=== PATIENT | male | born 1945 | race Caucasian/White ===

== ENCOUNTER → 2024-12-22 17:31 | Outpatient (REF) | payer MEDICARE, OTHER, SELFPAY | LOC: RAD 17:31 | PROVIDERS: ATTENDING PHYSICIAN Family Medicine | DX: R06.09 Other forms of dyspnea (principal); R94.31 Abnormal electrocardiogram [ECG] [EKG] | CPT/HCPCS: 71046 ==

== ENCOUNTER → 2025-03-28 08:59 | Outpatient (REF) | payer MEDICARE, OTHER, SELFPAY | LOC: RCS 08:59 | PROVIDERS: ATTENDING PHYSICIAN Family Medicine | DX: R06.09 Other forms of dyspnea (principal); R94.31 Abnormal electrocardiogram [ECG] [EKG] | CPT/HCPCS: 93017; 93350 ==

== ENCOUNTER 2025-07-18 17:33 | Inpatient (IN) | payer MEDICARE, OTHER, SELFPAY ==
[2025-07-18] VITALS (60 sets, daily range): BP systolic 132–188; BP diastolic 83–108; BMI 34.8
[2025-07-18 16:11] LABS: Glucose - Point of Care 94 mg/dl (70-99)
[2025-07-18 16:21] LABS: Hematocrit 49.2 % (39.0-52.0); Hemoglobin 16.8 g/dL (13.0-18.0); Mean Corp Hgb Conc. 34.1 g/dL (33.0-37.0); Mean Corpuscular Volume 94.1 fL (80.0-94.0); Nucleated Red Blood Cells % 0 % (-); Platelet Count 194 10^3/uL (130-400); Red Cell Dist. Width 12.4 % (11.5-14.5)
[2025-07-18 16:28] LABS: INR 0.93; PT 12.9 Sec (11.4-14.6)
[2025-07-18 16:29] LABS: APTT 24.1 Sec (23.4-35.0)
[2025-07-18 16:43] LABS: Troponin I < 0.012 ng/ml
[2025-07-18] MEDS: TNKASE 5 MG IV (17:09)
--- NOTE | 2025-07-18 17:17 | ED.CVA ---
History of Present Illness
General
Chief Complaint: CVA/TIA Symptoms
Time Seen by Provider: 07/18/25 16:08
Onset of Stroke Symptoms
Onset of symptoms known: Yes
Date of onset of symptoms: 07/18/25
Time of onset of symptoms: 14:45
Time pt last seen normal is known: Yes
Date last time pt seen normal: 07/18/25
Time last time pt seen normal: 14:45
History of Present Illness
History of Present Illness:
80-year-old male presenting with slurred speech, left-sided facial droop, left-sided numbness and weakness starting around 245pm while walking around at [email or web address]. Patient denies headache, chest pain or shortness of breath. Patient is not on
blood thinners. states that patient is otherwise healthy, only takes Lexapro for history of depression
Past History
Past History
ED Past Medical History: Other (Previous kidney stone, status post right knee meniscectomy, status post L5 herniated disc with epidural steroids)
Social History
Tobacco: Non-smoker
Alcohol: None
Family History
Family History: Negative Diabetes, Hypertension or CAD
Phy Exam
Physical Exam
Physical Exam:
General: Alert, no acute distress
Head: NCAT
Eyes: clear conjunctiva, PERRLA, EOMI
Neck: supple
Cardiac: regular rate and rhythm, no murmur
Lungs: clear to auscultation bilaterally. No wheezes, rales, or rhonchi. No respiratory distress.
Abdomen: soft, nondistended nontender. No rebound or guarding.
MSK: no lower extremity edema bilaterally. No deformity
Skin: warm, dry
Neuro: Alert and oriented x3. Slurred speech. Left-sided facial droop. Numbness to left arm compared to right, no numbness to legs. Left leg pronator drift, and no arm pronator drift. NIHSS 4.
Course
Orders/Labs/Results
Orders:
Orders
07/18/25 16:06
CT HEAD STROKE ALERT W/o Cont Urgent
Reason For Exam: lateral weakness
07/18/25 16:11
Electrocardiogram (*1) Urgent
Reason for Study: Other
Other Reason for Exam: Possible Stroke
Bedside Glucose- Treatment ONCE
07/18/25 16:12
EKG- Treatment ONCE
07/18/25 16:13
Complete Blood Count/With Diff Urgent
PTT Urgent
Prothrombin Time Urgent
Troponin I Urgent
07/18/25 16:18
CT HEAD/NECK ANG STROKE ALERT Urgent
Comment:
Reason For Exam: stroke alert
07/18/25 16:28
CT BRAIN PERF STROKE ALERT Urgent
Comment:
Reason For Exam: stroke alert
07/18/25 16:56
Comprehensive Metabolic Panel Urgent
Magnesium Urgent
Comment: ADD ON
Phosphorus Urgent
Comment: ADD ON
07/18/25 17:01
Tenecteplase [Tnkase] 25 mg Syringe [Syringe Non-Pump] 0 ml IV NOW
Provider explained risk/benefits to patient &/or caregiver?: Yes
Blood pressure: 147/94
07/18/25 17:29
Admit/Transfer Patient As Directed
Co-Sign Provider:
Level of Care: Inpatient admission
Assign to:: ICU
Physician / Group: Dariel
Diagnosis: Stroke
Reason for Hospitalization: TNK
Expected length of stay greater than two midnights?: Yes
ELOS- Estimated Length of Stay in days: 3
I certify the patient meets the requirements for IP care: Yes
07/18/25 17:30
PRN Pain Medication Management As Directed
May give lesser potent ordered pain med per pt: Yes
preference::
Protocol:: Medication orders for pain may be administered in a
manner that supports deferring to patient preference
when the pt is:
- Requesting an ordered lesser potent pain medication.
Least to most potent pain medications are defined
as: acetaminophen < NSAID < tramadol < opioids
(morphine, oxycodone, hydromorphone).
- Requesting a lesser dose of the same medication IF
ORDERED.
- Requesting a less intrusive route of administration
if both routes are prescribed by the provider (PO <
IV).
07/18/25 17:31
Code Status As Directed
Resuscitation Status: Full Code
07/18/25 17:34
Add On- LAB Stat
Comments:: PLEASE ADD
Tests Added?: MAG,PHOS
07/18/25 17:55
Acetaminophen [Tylenol] 650 mg PO Q4HPRN PRN
HydrALAZINE [Apresoline] 5 mg IV Q6HPRN PRN
07/18/25 17:55
Electrocardiogram (*1) Routine
Reason for Study: TIA/Stroke
Case Management Consult Once
Case Management Consult: Discharge Planning
DIETARY IP CONSULT Routine
Reason for Consult: stroke/TIA
And Taxi Instructor Bus Trolley Consult Routine
Consulting Provider: Oliver Flanagan
Was physician already notified: Yes
NEUROLOGY CONSULT Urgent
Consulting Provider: Vicente Carlos
Was physician already notified: Yes
Flanging Operator Urgent
MR Brain Without Contrast Routine
Comment: complete 24 hrs post tenecteplase administration
Reason For Exam: possible stroke, status post tenecteplase
Recent pill cam endoscopy?: No
Activity As Directed
Activity Level: Bathroom Privileges
Out of Bed- Chair
With Assistance
Comment: x 24hr post tenecteplase admin (and no PT/OT). then OOB as tolerated
Head of Bed-Restrictions As Directed
Elevation Level: 30 degress
Frequency: At all times
Comment: head of bed up 30 degrees for 24 hours
Hemetest Stools As Directed
Comment: hemoccult all stools if patient received tenecteplase
NIH Stroke Scale As Directed
Directions: Other
Comment: NIH stroke Scale to be completed prior to thrombolytic administration, then every 1 hour for 2
hours, then every shift and with change in condition and/or mental status.
Neurological Checks As Directed
Frequency: Per unit guidelines
Additional Instructions:: after start of thrombolytic therapy:
q15min x 2 hrs, q30min x 6 hrs, q1h x 16 hrs, q4h x 24 hrs, then every shift and
with any changes.
Notify MD As Directed
Notify physician if: - Any deterioration, change in neurological status, development of severe headache,
nausea and vomiting, or with any signs of bleeding. (see guidelines for suspected
intracerebral hemorrhage).
- If intracranial hemorrhage is suspected or confirmed by imaging, anticipate need for
osmotic diuretic to maintain euvolemia.
Notify MD As Directed
Notify physician if: Glucose less than 70 or greater than 180.
Anticipate corrective insulin orders.
Notify MD As Directed
Notify physician if: SBP not at goal within 30 minutes of prn HYDRALAZINE administration.
notify provider to initiate continuous infusion of nicardipine or clevidipine.
Notify MD As Directed
Notify physician if: unable to obtain MRI of head within 22-32 hours of tenecteplase administration
- contact Neurology for order for CT of head without contrast
Patient Education As Directed
Type: Stroke education packet
Comment: provide to patient and family
Pneumatic Compression Sleeves As Directed
Type: Knee high
Precautions As Directed
Type of Precautions: Bleeding
Comment: post Bleeding Precaution sign at bedside (if patient received tenecteplase)
Swallow Screening CVA/TIA ONLY As Directed
Comment: NPO until swallow screening completed
If patient FAILS swallow screening:: NPO and Speech consult and aspiration precautions
If patient PASSES swallow screening, diet:: Cholesterol Lowering
Thrombolytic Precautions As Directed
Thrombolytic Precautions:: [place] bleeding precautions. Minimize invasive procedures and venipunctures,
avoid IM injections and over-handling patient, and check all puncture sites for
bleeding. Assess the patient and notify provider for signs and symptoms of
internal or serious bleeding, such as changes in vital signs or evidence of blood
in the urine or stool.
Additional instructions: Hemocult all stools.
Apply direct pressure or pressure dressing to any compressible puncture sites.
No ABG sampling or Hlae insertion after Tenecteplase administration for 24 hours,
unless directed by the Neurologist/Attending.
Vital Signs As Directed
Frequency: q15m
Call for:: BP greater than 180/105 mmHg or less than 100/60 mmHg
Additional Instructions:: after start of thrombolytic therapy:
q15min x 2 hrs, q30min x 6 hrs, q1h x 16 hrs, q4h x 24 hrs, then every shift and
with any changes.
Ot Eval And Treat Routine
Pt Eval And Treat Routine
Activity Level: Out of Bed-Early Mobility
Speech Therapy Eval & Treat Routine
DX Deep Vein Thrombosis Video Routine
07/18/25 22:00
Escitalopram Oxalate [Lexapro] 10 mg PO HS
07/19/25 06:00
Basic Metabolic Panel IN AM
Cardiovascular Evaluation IN AM
Complete Blood Count/No Diff IN AM
Glycohemoglobin (HgbA1c) IN AM
Magnesium IN AM
PTT IN AM
Prothrombin Time IN AM
Abnormal Lab Results
07/18/25 07/18/25
16:13 16:56
MCV 94.1 H fL
(80.0-94.0)
MCH 32.1 H pg
(27.0-31.0)
Absolute Monos (auto) 0.8 H 10^3/uL
(0.1-0.6)
Monocytes % 10.6 H %
(1.7-9.3)
Sodium 134 L mmol/L
(135-145)
07/18/25 16:13
07/18/25 16:56
Vital Signs
Initial and Last Documented VS:
Initial Vital Signs
Temp Pulse Resp BP Pulse Ox
98.0 F 66 18 168/96 99
07/18/25 16:02 07/18/25 16:02 07/18/25 16:02 07/18/25 16:02 07/18/25 16:02
Last Documented Vital Signs
Temp Pulse Resp BP Pulse Ox
97.7 F 57 20 157/100 97
07/18/25 18:07 07/18/25 19:30 07/18/25 19:30 07/18/25 19:30 07/18/25 19:30
MDM/Problems Addressed
MDM/Problems Addressed:
80-year-old male presenting with stroke symptoms consistent with left-sided facial droop, left-sided numbness/weakness and slurred speech starting at 245 this afternoon. Patient is on no blood thinners. Patient seen immediately on arrival due to
concern for acute stroke. Discussed with Dr. Perez, [place] [facility] neurology fellow, who reviewed imaging. Given patient is unable to walk due to the left leg weakness, recommended to administer TNK. Discussed risk versus benefits with patient
and at bedside including intracranial hemorrhage. Patient and expressed verbal understanding and are agreeable. Administered TNK. Critical Care alert activated. Pt accepted to ICU
Labs reveiwed, unremarkable.
*Pulse Oximetry
SaO2: 97
Oxygen Mode of Delivery: Room air
Patient hypoxic: no
*EKG
Interpreted by ED Provider?: Yes (EKG shows sinus bradycardia at 58 bpm with VA 240 QTc 422 T wave inversions in leads I and aVL, V4 through V6 similar to previous EKG on 04/12/2019)
*Critical Care Note
Total Time (30-74mins, 75-104mins- exclusive of procedures): Critical care time 46 min
ED Attending Note
-
Portions of this chart may have been created with voice recognition software.� Occasional wrong word or��sound alike� substitutions may have occurred due to the inherent limitations of voice recognition software.
Discharge Plan
Departure
Patient Disposition: Admit
Date of Disposition: 07/18/25
Time of Disposition: 17:16
Presentation/result/management discussed w/ accepting MD/DO: Hospitalist
Discharge Problem:
Stroke
Interventions
Interventions:
*Risk Screen - Suicide Last Done: 07/18/25 16:09
*General Assessment Last Done: 07/18/25 16:09
*Neglect/Abuse Screening Last Done: 07/18/25 16:09
*ED COVID-19 Vaccine History Last Done: 07/18/25 16:09
*Nursing Disposition Last Done: 07/18/25 17:50
ED- Pulmonary Assessment Last Done: 07/18/25 16:30
ED- Neurological Assessment Last Done: 07/18/25 16:54
ED- Cardiac Assessment Last Done: 07/18/25 16:30
Discharge Date and Time
Discharge Date/Time: 07/18/25 17:50
[2025-07-18 17:18] LABS: ALT (SGPT) 43 U/L (0-50); AST (SGOT) 34 U/L (17-59); Albumin 3.8 g/dl (3.5-5.0); Alkaline Phosphatase 46 U/L (38-126); Blood Urea Nitrogen 17 mg/dl (9-20); Calcium 8.9 mg/dl (8.4-10.2); Carbon Dioxide 26 mmol/L (22-30); Chloride 104 mmol/L (98-107); Glucose 94 mg/dl (70-99); Potassium 4.7 mmol/L (3.5-5.1); Sodium 134 mmol/L (135-145); Total Protein 6.4 g/dl (6.3-8.2); eGFR > 60.00
--- NOTE | 2025-07-18 17:27 | HPS.HSE ---
Addendum entered and electronically signed by Ricci Vieira MD 07/18/25 19:58:
This is an addendum to H&P written by Gaby Roach on 07/18/2025. �Patient seen and examined independently with PA.
80-year-old male past medical history of depression, thyroid mass status right hemithyroidectomy presenting with feeling unwell, slurred speech, left-sided tingling progressing to worsening left-sided upper and lower weakness and left facial droop
symptoms starting at 2:45 PM.�
Vital signs show blood pressure of 188/101. �NIH of 6.
Labs unremarkable.
CT head shows no acute intracranial abnormality. �CTA head and neck shows no significant stenosis.
Concern for acute CVA. �Stroke alert was called and neurology recommended TNK. �Maintain blood pressure below 180/100. �As needed hydralazine. �Check A1c and lipid panel. �Check echo. �MRI brain. �PT OT. �Speech evaluation. �Neurology consulted.
Patient had improvement in symptoms after TNK but later some worsening of tingling on the left. Repeat CT head negative.�
Original Note:
Family Physician
-
Family Physician:
Chief Complaint
-
Left Sided Weakness
History of Present Illness
Patient is a 80 y/o male past medical history of depression who presents with left sided weakness. Onset of symptoms was about one hour prior to arrival. Patient reports he initially just began not feeling well while shopping. He then developed
difficulty with his speech, and worsening numbness with weakness of his left side. His brought him directly to the emergency department for evaluation. Prior to my evaluation patient was given Tenecteplase prior to my evaluation and symptoms
are now improving. He denies any prior history of stroke. He denies hypertension, hyperlipidemia or diabetes mellitus.
Medical History
Past Medical History
Past Medical History: Reports Other
Additional Past Medical History:
Depression
Thyroid Mass
Past Surgical History: Reports Other
Additional Past Surgical History:
Right Hemithyroidectomy
Right Knee Meniscectomy
Lithotripsy
Social History
Tobacco: Non-smoker
Alcohol: None
Family History
Family History: Not pertinent
Allergies / Home Medications
Allergies reflects when Allergies were last updated in [employer].
Home Medications with original date entered in [employer]
Allergy/Medication List:
Allergies
Allergy/AdvReac Type Severity Reaction Status Date / Time
No Known Allergies Allergy Verified 07/18/25 16:07
Home Medications
escitalopram oxalate 10 mg tablet (Lexapro) 10 mg PO HS 07/18/25
Review of Systems
-
Unable to obtain full review of systems at this time due to: Acuity
A 12 point ROS was completed and negative except as noted: Yes
Constitutional: Denies Fever
Respiratory: Denies Cough or Trouble Breathing
Cardiac: Denies Chest Pain or Palpitations
Physical Exam
Vital Signs
Vital Signs
Temp Pulse Resp BP Pulse Ox
98.0 F 57 17 160/95 97
07/18/25 16:02 07/18/25 17:09 07/18/25 17:09 07/18/25 17:09 07/18/25 17:22
Physical Exam
General: Well Developed and Well Nourished
HEENT: Anicteric and Moist mucous membranes
Respiratory: Clear and Non Labored Respirations
Cardiac: S1/S2 and Regular Rhythm
GI: Soft
Rectal: Deferred by Provider
Musculoskeletal: No Clubbing, No Cyanosis and No Edema
Skin: Warm and Dry
Neuro: Awake, Alert, No Motor Deficits (All prior motor deficits have resolved), Slurred Speech (Minimal and continuing to improve during my evaluation) and Facial Droop (Slightly on left)
Psych: Calm
Laboratory Results
-
07/18/25 16:13
07/18/25 16:56
Laboratory Results
PT 12.9 Sec (11.4-14.6) 07/18/25 16:13
INR 0.93 07/18/25 16:13
APTT 24.1 Sec (23.4-35.0) 07/18/25 16:13
Total Bilirubin 0.7 mg/dl (0.2-1.3) 07/18/25 16:56
AST 34 U/L (17-59) 07/18/25 16:56
ALT 43 U/L (0-50) 07/18/25 16:56
Alkaline Phosphatase 46 U/L (38-126) 07/18/25 16:56
Troponin I < 0.012 ng/ml 07/18/25 16:[address]:
No acute intracranial abnormality.
Head/Neck CTA:
CT Brain: No acute intracranial process. Specifically, no evidence of acute hemorrhage.
CTA Head: No significant arterial stenosis or large vessel occlusion. No aneurysm. Mild atherosclerotic calcifications of the bilateral carotid siphons without significant stenosis.
CTA Neck: No significant arterial stenosis.
Data Reviewed
-
Lab Data: Labs Reviewed by me
Impression/Plan
-
Acute Stroke
-Patient given TNK in ED - Admit to ICU
-Consult Pre School Manager
-Consult Neurology
-No antiplatelets for 24 hours
-Check Brain MRI tomorrow
-PT/OT / Speech Consult
-Check HgbA1c and Lipid Panel
Depression
-Continue Lexapro
DVT proph: SCDs
Code Status: Full Code
[2025-07-18 18:16] LABS: Magnesium 2.0 mg/dl (1.6-2.3)
--- NOTE | 2025-07-18 18:25 | PTCARENOTE ---
Rec'd pt 1755 via stretcher from ED s/p TNK at 1709. Rec'd pt awake alert and oriented. Denies dizziness or headache. NIH is a 6. Pt with sl L facial droop. Slight L arm and L leg ataxia as well as a slight drift on both the L arm and L leg. Some
slurring of his speech but easily understandable. Admits to heaviness/weakness of his L arm and L leg but is able to fully move them and some pins and needles in his L hand. 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 States sensation is
equal bilaterally. CARLOS at 2mm. Skin is pink wm and dry. Respirs are unlabored on RA with sats of 96%. BS are clear. Monitor SBrady. + pulses. No edema. Denies chest pain. ABd is soft with + BS. Denies nausea. Voiding yellow urine in the urinal.
Capped ints intact L ac and R ac. Complete CHG bath given. Pts in and updated. Call fleming in reach. Plan of care reviewed with pt and his .
--- NOTE | 2025-07-18 18:50 | PTCARENOTE ---
At the 183 Neuro check noticed pt was struggling to move his L arm- when asked if he was feeling ok said he was having a harder time moving his arm and that he couldn't feel his L foot as well. Denied dizziness or headache. CARLOS at 2 mm. Still
with sl L facial droop. R arm and R leg with no issues. L arm he is able to move but definitely weaker than the last neuro check- is able to lift it off the bed but not able to raise it as high as earlier and grasp is weaker than earlier. L leg not
able to lift as high off the bed and admits he has to concentrate to lift it. Able to move toes on the L but not as much. Denies difference in sensation. Still admits to pins and needles in hand. Ataxia is worsened on both the L arm and L leg.
Panchito updated and CT scan ordered
--- NOTE | 2025-07-18 18:50 | PTCARENOTE ---
Additional assessment. NIH completed at 9913 and [facility] is an 8
--- NOTE | 2025-07-18 18:55 | PTCARENOTE ---
Dr. Flanagan updated on neuro changes and pt taken for CT of the head.
--- NOTE | 2025-07-18 19:10 | PTCARENOTE ---
Returned from CT- no changes NIH remains at an 8. Able to move L arm and L leg but admits they both feel heavier and movement still less than when he first came up from the ED. Still says sensation is the same. Able to move the toes on his L foot
but only slightly. Speech still with slurring but no worse than last check. NIH completed with oncoming shift. Pts family at the bedside.
--- NOTE | 2025-07-18 20:00 | PTCARENOTE ---
NIHSS 8, performed with dayshift RN at bedside. Pt has left sided weakness w/ left facial droop. Speech is slurred but understandable.
--- NOTE | 2025-07-18 20:33 | W.PN.UPDATE ---
Update Note
Progress Note Update
07/18/2020
1849- Called to bedside for worsening stroke symptoms. Patient had improvement able to lift left arm and leg against gravity and improvement in speech after TNK. Presently now having difficulty with left arm and leg lift against gravity, decreased
hand strength unable to fully open/spread fingers apart or keep open against resistance. Left facial droop, speech mild dysarthria although able to answer all questions and follow complex 2 step commands. Ctscan of the head w/o contrast ordered
STAT, patient s/p TNK. Dr. Kohler, stroke neurologist at [facility] and Dr. Flanagan, concrete block molder updated and agreed with repeat Ctscan of the head.
Ctscan of the head w/o contrast (repeat)- No acute intracranial infarct, acute intracranial/intraventricular hemorrhage or extra-axial fluid collection. Please note, as result of some residual contrast from CT earlier in same day, although not
definitively identified, small volume subarachnoid hemorrhage cannot be excluded. Will repeat Ctscan of the head in 6 hours for completeness to monitor bleed vs residual contrast. RN updated of plan of care. Patient and family updated of Ctscan
results and all questions answered. Patient now able to lift left arm and leg against gravity and dysarthria has also improved. Continue management SBP<180. Patient denies any headache, nausea/vomiting, or pain.
[2025-07-18] MEDS: LEXAPRO 10 MG PO (23:12)
[2025-07-19] VITALS (59 sets, daily range): BP systolic 121–177; BP diastolic 62–137; BMI 34.4
--- NOTE | 2025-07-19 00:30 | PTCARENOTE ---
Pt taken to CT for follow up scan.
[2025-07-19 04:44] LABS: Hematocrit 45.5 % (39.0-52.0); Hemoglobin 15.6 g/dL (13.0-18.0); Mean Corp Hgb Conc. 34.3 g/dL (33.0-37.0); Mean Corpuscular Volume 93.0 fL (80.0-94.0); Platelet Count 194 10^3/uL (130-400); Red Cell Dist. Width 12.5 % (11.5-14.5)
[2025-07-19 04:51] LABS: APTT 25.6 Sec (23.4-35.0); INR 1.00; PT 13.7 Sec (11.4-14.6)
[2025-07-19 05:16] LABS: Blood Urea Nitrogen 17 mg/dl (9-20); Calcium 9.2 mg/dl (8.4-10.2); Carbon Dioxide 25 mmol/L (22-30); Chloride 107 mmol/L (98-107); Estimated Creatinine Clearance 102 ml/min; Glucose 92 mg/dl (70-99); HDL Cholesterol 56 mg/dl; LDL Cholesterol, Calculated 121 mg/dl; Magnesium 2.2 mg/dl (1.6-2.3); Potassium 4.4 mmol/L (3.5-5.1); Sodium 139 mmol/L (135-145); Very Low Density Lipoprotein 12 mg/dl (0-30); eGFR > 60.00
--- NOTE | 2025-07-19 07:00 | PTCARENOTE ---
07:00 assumed care; patient in bed. Bedside NIH performed, score 8 same from previous shift
--- NOTE | 2025-07-19 07:26 | W.PN.HOSP.TC ---
Addendum entered and electronically signed by Allan Talamantes MD 07/19/25 13:20:
Most likely acute CVA involving right MCA territory per neurology
S/p TNK
Provide aspirin after 24-hour yobani
Lipitor
MRI
PT OT
PM&R
Original Note:
Today's Communication/Plan
-
- MRI brain today
- Aspirin 81mg after 5:10pm tonight
- PT/OT and PMR consult
Assessment / Plan
Assessment / Plan
Jonathan Fernando is a 80-year-old man with pmh notable for prostate CA (XRT 2016), MARLIN, thyroid mass (s/p R hemithyroidectomy) who presented with slurred speech, left-sided facial droop, left UE & LE numbness and weakness, now s/p TNK and stable.
#Ischemic stroke
Patient presented with left-sided facial droop, left-sided numbness and weakness, and slurred speech. Presentation c/w R hemisphere infarct. NIH stroke scale 6 on admission. Patient is not on blood thinners at home; no known hx of stroke, HTN, HLD,
DM. Patient received TNK at 5:09 PM on 07/18. Head CT x 2 with no intracranial hemorrhage or abnormality. CTA head and neck (07/18) with no significant stenosis. Early am, pt able to lift left arm and leg against gravity and dysarthria has also
improved. Lipid panel returned wnl; LDL>70. EKG with sinus adonis, 1st degree AV block with PVCs.
This am, pt able to speak, able to move face symmetrically (although endorses weakness in squeezing L eye shut); unable to clench left fist, able to weakly resist pull with left elbow flexion, unable to lift left arm fully against gravity.
- MRI brain today
- Start aspirin 81mg therapy tonight (07/19) after 5:10pm
- Consider addition of clopidogrel for DAPT this evening
- Atorvastatin 80mg daily
- Consider echo to eval for additional etiology of stroke
- Plan for F BERTHA swallow study on 07/20
- PT/OT consulted
- PM&R consulted
- Neurology consulted, appreciate recs
#Elevated blood pressure
BP 188/101 on admission. This am, BP 153/92, downtrending without BP meds delivered.
- Continue to monitor, keep SBP below 180
- If BP trends up, add on as needed hydralazine
#Elevated A1c
A1c 6.0 this admission. No documented hx T2DM. Glucose levels in 90s this admission.
- Continue to monitor glucose
- Start low-dose insulin sliding scale if glucose elevated >150
#Chronic
-Depression-continue Lexapro
#Global
- DVT PPx: Holding anticoagulation until 24 hours s/p TNK administration; SCDs
- Diet: Per speech, cautious IDDSI 6 soft and bite sized and thin liquids with single sips and meds in pur�e
- Code: Full
-Dispo: To acute rehab versus to home with outpatient PT, pending PT/OT and PMNR eval
Anticipated Discharge: 24 - 48 hours
Subjective/Interval History
-
Date of Service: July 19, 2025
Patient awake, sitting up in bed this morning. Patient able to converse fully; speech is only somewhat garbled. Denies any worsening of his left-sided symptoms since this morning. Denies any chest pain or shortness of breath. Becomes tearful
when discussing his inability to use his left arm. States that he has so much that he needs to do. coming later today.
Objective Data
-
Labs:
Laboratory Results
07/19/25
04:31
WBC 7.2
Hgb 15.6
Hct 45.5
Plt Count 194
PT 13.7
INR 1.00
APTT 25.6
Sodium 139
Potassium 4.4
Chloride 107
Carbon Dioxide 25
BUN 17
Creatinine 0.7
Glucose 92
Calcium 9.2
Vital Signs:
Vital Signs
Temp Pulse Resp BP Pulse Ox
97.5 F 57 17 122/87 95
07/18/25 21:00 07/19/25 07:06 07/19/25 07:06 07/19/25 04:45 07/19/25 05:01
I&O
07/18/25 07/19/25 07/20/25
06:59 06:59 06:59
Output Total 1300 / 1300
Balance -1300 / -1300
Review of Systems
-
History Source: Patient
Constitutional: Reports No Symptoms
Psych: Reports Sad
Physical Exam
-
General: Well Developed, Well Nourished, Conversant and Slurred Speech
HEENT: Normocephalic, Atraumatic and Anicteric
Respiratory: Non Labored Respirations
Cardiac: Regular Rhythm
GI: Nondistended
Skin: Warm and Dry
Neuro: Awake, Alert, Oriented, No Motor Deficits (Patient with strength of 1 in the left hand (unable to director semiconductor); strength 3 on left elbow flexion; strength 2 left shoulder (unable to lift arm against gravity) ) and Other (Sensation full and symmetric
in bilateral upper extremities and bilateral face; patient without tongue deviation; patient with symmetric and full strength and puffing out cheeks bilaterally; patient able to raise both eyebrows and squeeze both eyes shut, left side weaker;L side
weaker.)
Psych: Calm and Other (tearful )
Data Reviewed
-
Total Time Spent with Patient (in minutes): 15
Critical Care Time (in minutes): 45
CT Scan: Image personally visualized and interpreted and Report Reviewed by me
Labs: Labs Reviewed by me
[2025-07-19 07:45] LABS: Glycohemoglobin (HgbA1c) 6.0 % (4.0-5.6)
--- NOTE | 2025-07-19 08:21 | CON.NEURO ---
Addendum entered and electronically signed by Vicente Carlos MD 07/19/25 10:56:
Studies reviewed.
I have personally examined the patient. I reviewed and agree with the KINDERGARTEN TUTOR's Note.
My addenda:
Awake, alert, interactive. No acute distress.
Speech thick.
Follows 2-step requests w/o difficulty. No tremor.
Extra-ocular movements grossly intact.
Facial movements full and symmetric. Hearing intact to normal conversational volume.
Unable to keep left upper extremity elevated more than 3 seconds, unable to keep left lower extremity off of bed more than 2 seconds.
Neck: full ROM.
Chest: no dyspnea
Heart: no JVD
Ext: (-) Clubbing, (-) Cyanosis, (-) Edema
IMPRESSIONS/RECOMMENDATIONS:
Abrupt onset of left hemibody weakness with dysphagia and dysarthria
Most likely secondary to acute ischemic stroke involving the right MCA territory.
Check MRI of brain especially with the possibility although unlikely that this is secondary to metastatic disease
Provide aspirin 81 mg by mouth or 300 mg by rectum if the patient is not able to take by mouth 24 hours after provision of tenecteplase if no significant hemorrhage is demonstrated by MRI of brain
Start atorvastatin due to LDL greater than 70
Rehabilitation evaluations and treatment
Consider early nutrition provision if patient is unable to take by mouth
D/W patient
All questions answered.
Will continue to follow peripherally.
Original Note:
Documented by User: Nellie Noble NP 07/19/25 10:08
Neuro Assessment/Plan
Assessment
80 year-old right-handed male with past medical history of depression, prostate CA (XRT 2016), MARLIN, thyroid mass status right hemithyroidectomy presented to [facility] on 07/18/2025 for evaluation of slurred speech, left facial droop and left sided
weakness s/p TNK.
Head CT 07/19/2025 0829: No acute intracranial abnormality.
Head CT 07/18/2025 1922: No acute intracranial infarct, acute intracranial/intraventricular hemorrhage or extra-axial fluid collection. Please note, as result of some residual contrast from CT earlier in same day, although not definitively
identified, small volume subarachnoid hemorrhage cannot be excluded. Findings again seen compatible with diffuse cortical atrophy with nonspecific white matter changes as described above.
CT perfusion 07/18/2025:
CBF <30% Volume: 0 mL (estimate of ischemic core)
Tmax >6 second Volume: 0 mL (critically hypoperfused tissue)
CBF/Tmax Mismatch Volume: 0 mL (ischemic penumbra)
CBF/Tmax Mismatch Ratio: None
Hypoperfusion Index (Tmax >10s/Tmax >6s): N/A (predicts rate of collateral flow, infarct growth, and clinical outcome)
CBV Index (rCBV in Tmax >6s): N/A
CT Brain 07/18/2025 1651: No acute intracranial process. Specifically, no evidence of acute hemorrhage.
CTA Head 07/18/2025 1651: No significant arterial stenosis or large vessel occlusion. No aneurysm. Mild atherosclerotic calcifications of the bilateral carotid siphons without significant stenosis.
CTA Neck 07/18/2025 1651: No significant arterial stenosis.
CT head 07/18/2025 1626: No acute intracranial abnormality. ASPECT score: 10
Received TNK at 1701 on 07/18/2025
Labs: LDL 121, Hgb A1C 6.0
Plan
Impressions: Abrupt onset of dysphasia and left hemiparesis most likely due to acute ischemic stroke
Recommendations:
� goal blood pressure over the next 24 hours would be less than 180/105 mmHg
� check MRI of the brain without contrast for localization of the stroke as planned
� hold all antiplatelets, OAC meds, DOAC meds, heparinoids for next 24 hours
� neurochecks and NIHSS per unit guidelines
� goal LDL <70, current LDL 121 start atorvastatin 80 mg at bedtime when patient is able to take PO
� goal blood glucose levels for patient would be less than 180 mg/dL
� Speech, PT, OT evaluations needed
� DVT prophylaxis with sequential compression devices over next 24 hours, can be started on Enoxaparin subcutaneous for DVT prophylaxis beginning 24 hours after TNK provision.
� stroke educational materials will be provided
All questions encouraged and answered, plan of care discussed with Dr. Carlos, nurse and patient
Consultation
Order
Date of Consultation: 07/19/25
Requesting Provider: hospitalist
Reason for Consult: dysarthria and left-sided weakness
Subjective/Objective
Subjective Data
Date of Service: July 19, 2025
80 year-old right-handed male with past medical history of depression, prostate CA (XRT 2017), MARLIN, thyroid mass status right hemithyroidectomy presented to [facility] on 07/18/2025 for evaluation of slurred speech, left facial droop and left sided
weakness starting at 2:45 pm. Arrived at hospital at 1600. In ED, initial BP 188/101, NIHSS 6. CT head shows no acute intracranial abnormality. �CTA head and neck shows no significant stenosis. Concern for acute CVA. �Stroke alert was called and
[facility] recommended TNK. �Maintain blood pressure below 180/100. �As needed hydralazine. Patient had improvement in symptoms after TNK but later some worsening of tingling on the left. Repeat CT head negative.�In ICU, at 1850 worsening left
sided weakness. Dr. Kohler, stroke neurologist at [facility] and Dr. Flanagan, meat hostess updated with repeat head CT ordered. Head CT w/o contrast showed no acute intracranial infarct, acute intracranial/intraventricular hemorrhage or extra-axial fluid
collection. Please note, as result of some residual contrast from CT earlier in same day, although not definitively identified, small volume subarachnoid hemorrhage cannot be excluded. Another head CT was done 6 hours later which also showed no
acute intracranial abnormality. Current exam shows ongoing left hemiparesis and dysarthria. Current NIHSS remains 6.
Objective Data
Vital Signs
Temp Pulse Resp BP Pulse Ox
97.5 F 68 10 148/99 95
07/18/25 21:00 07/19/25 07:30 07/19/25 07:30 07/19/25 07:30 07/19/25 07:30
Lab Results
07/19/25 04:31
07/19/25 04:31
PT 13.7 Sec (11.4-14.6) 07/19/25 04:31
INR 1.00 07/19/25 04:31
APTT 25.6 Sec (23.4-35.0) 07/19/25 04:31
Sodium 139 mmol/L (135-145) 07/19/25 04:31
Potassium 4.4 mmol/L (3.5-5.1) 07/19/25 04:31
BUN 17 mg/dl (9-20) 07/19/25 04:31
Glucose 92 mg/dl (70-99) 07/19/25 04:31
Calcium 9.2 mg/dl (8.4-10.2) 07/19/25 04:31
Phosphorus 3.3 mg/dl (2.5-4.5) 07/18/25 16:56
LDL Cholesterol, Calc 121 mg/dl 07/19/25 04:31
Patient Allergies
No Known Allergies Allergy (Verified 07/18/25 16:07)
CVA Assessment
NIH Stroke Score
Level of Consciousness: 0 - Alert
LOC Questions: 0-Answers both correctly
LOC Commands: 0-Performs both correctly
Best Horizontal Gaze: 0-Normal
Visual Benitez: 0=Normal, no visual loss
Facial Palsy: 1=Minor paralysis
Motor - Right Arm: 0=No drift 10 seconds
Motor - Left Arm: 2=Partial vs. gravity
Motor - Right Le-No drift 5 seconds
Motor - Left Le-Partial vs. gravity
Limb Ataxia: 0-Absent
Sensation: 0-Normal
Best Language: 0-No aphasia
Dysarthria: 1-Mild slurring
Extinction and Inattention: 0-No abnormality
NIH Total Score:: 6
Tenecteplase Contraindications
Inclusion and Exclusion criteria reviewed: Yes
Modified [place] Score (MRS)
-
Modified [place] Scale (mRS): Moderately severe disability. Unable to attend to bodily needs/walk.
Score: 4
Physical Exam
-
General: No Apparent Distress, Comfortable and Appears Stated Age
Eyes: Unremarkable
HEENT: Normocephalic, Atraumatic and Anicteric
Neck: Full Range of Motion
Respiratory: No Dyspnea
Cardiac: No JVD
GI: Non-distended
Skin: Unremarkable
Extremities: No Clubbing, No Cyanosis and No Edema
Psych: Unremarkable
Extended Neurological Exam
Mood & Affect: Mood Unremarkable
Attention Span & Concentration: Awake, Alert, Interactive, No Difficulty with 2 Step Request and Other (oriented to person, place and time)
Memory: Vague
Tremor: Hand Tremor Absent and Head Tremor Absent
Speech: Dysarthric
Cranial Nerve II: Left Eye: Visual Benitez Intact
Cranial Nerve II: Right Eye: Visual Benitez Intact
Cranial Nerves III, IV, : Extraocular Movement: Extraocular Movement Full in all Directions
Cranial Nerve VII: Facial Symmetry: Reduced (left)
Cranial Nerve VIII: Hearing: Unremarkable Hearing to Normal Conversational Volume
Cranial Nerve XI: Shoulder Shrug: Reduced on Left
Muscle Strength, Overall: Reduced on Left
Pronator Drift: Drift in Left Upper Extremity and Drift in Left Lower Extremity
Deep Tendon Reflexes: Other (hyperreflexia to left side)
Touch Sensation: Unremarkable and Double Simultaneous Stimulation Unremarkable
Data Reviewed
-
CT-A: Report Reviewed and Image Reviewed
CT-Perfusion: Report Reviewed and Image Reviewed
CT Head: Report Reviewed and Image Reviewed
MRI Head: Ordered
Labs: Report Reviewed
Lipid Profile: Report Reviewed
HgbA1C: Report Reviewed
Reviewed with: Physician and Patient
Old Records: Summarized
Medications
-
Active Medications
Generic Name Dose Route Start Last Admin
Trade Name Freq PRN Reason Stop Dose Admin
Acetaminophen 650 mg 07/18/25 17:55
Acetaminophen 325 Mg Tablet PO 08/15/25 17:54
Q4HPRN PRN
PINEDA, mild pain, or temp >100.4F
Escitalopram Oxalate 10 mg 07/18/25 22:00 07/18/25 23:12
Escitalopram 10 Mg Tablet PO 08/15/25 21:59 10 mg
HS SANTANA Administration
Sodium Chloride 0 flush 07/18/25 19:00
Sodium Chloride 0.9% (Flush) Syringe IV 08/15/25 18:59
PER PROTOCOL SANTANA
Home Medications
�Medication �Instructions �Recorded
escitalopram oxalate 10 mg tablet 10 mg PO HS 07/18/25
(Lexapro)
Past History
Past History
ED Past Medical History: Other (Previous kidney stone, status post right knee meniscectomy, status post L5 herniated disc with epidural steroids)
Family/Social History
Tobacco: Non-smoker
Alcohol: None
Family History: Negative Diabetes, Hypertension or CAD

Documented by User: Vicente Carlos MD 07/19/25 10:40
CVA Assessment
NIH Stroke Score
NIH Total Score:: 6
Modified [place] Score (MRS)
-
Score: 4
--- NOTE | 2025-07-19 08:28 | CON.INTV ---
Consultation
Consultation Request
Date/Time Consultation Requested: 07/18/2025 - 1754
Date/Time Consultation Performed: 07/19/2025823
Requesting Provider: Gaby Bowden PA-C
Performing Provider: Dr. Flanagan
Reason for Consultation: s/p TNK
Medical History
-
Chief Complaint: Facial droop and difficulty speaking
History of Present Illness:
80-year-old male with a past medical history of prostate cancer s/p XRT (2016), history of melanoma (2005), thyroid nodule, history of depression, MARLIN on CPAP, ED, history of Peyronie's disease, history of bladder stone and mixed hyperlipidemia who
presented with facial droop and speech changes. Spouse noticed the symptoms. They began 1 hour prior to arrival to the ER. Left side of his body also felt weak and numb. Initial NIHSS of [address] head with stroke alert performed showing
no acute intracranial abnormality. CTA head/neck performed showing no acute intracranial process with no hemorrhage, no significant arterial stenosis, LVO or aneurysm. Also no significant arterial stenosis in the neck. A CT perfusion scan was
also performed. Patient is not anemic, with Hb 16.8, platelet count 194, INR 0.93, initial troponin <0.012, and POCT glucose of 94. Risks and benefits of tenecteplase were discussed with the patient and he agreed to receiving this, and the
medication was administered on 07/18/2025 at 1709. Patient then transferred to the ICU for close monitoring and candy forming machine operator services were consulted for additional management/recommendations.
After being given TNK, he had worsening L-sided weakness and muffled speech. CT head repeated and showed no acute intracranial infarct, ICH/IVH or extra axial fluid collection. He then had another repeat CT head earlier this AM again with no acute
pathology seen. This morning patient's heart rate is 63, BP 162/84 and saturating 94%. NIHSS 8 this AM from 6 yesterday after he arrived to ICU. MRI brain scheduled for 5PM. He continues to feel well but unable to move left arm and minimally can
move his left leg. He denies shortness of breath, chest pain, PINEDA, nausea, fevers or chills. The patient's , Hannah was present at bedside and all questions were answered.
PMHx: prostate cancer s/p XRT (2016), history of melanoma (2005), thyroid nodule, history of depression, MARLIN on CPAP, ED, history of Peyronie's disease, history of bladder stone, mixed hyperlipidemia
PSHx: Hip replacement (January 2013), melanoma resection (2005)
Past Medical History
Past Medical History: Other (Above as per HPI)
Past Surgical History: Other (Above as per HPI)
Social History
Tobacco: Non-smoker
Alcohol: Occasional
Drug: None
Family History
Family History: Cancer (Father: Brain tumor), Hypertension (Mother) and Other (Sibling: Depression)
Allergies / Home Medications
Allergies
Allergy/AdvReac Type Severity Reaction Status Date / Time
No Known Allergies Allergy Verified 07/18/25 16:07
Home Medications
�Medication �Instructions �Recorded �Confirmed �Last Taken �Type
escitalopram oxalate 10 mg tablet 10 mg PO HS Mental Health/Anxiety 07/18/25 07/18/25 07/17/25 History
(Lexapro)
Review of Systems
-
History Source: Patient
All other systems: Negative unless noted
Vitals / Labs / Diagnostic Testing
Vital Signs
Temp Pulse Resp BP Pulse Ox
97.9 F 66 15 153/92 95
07/19/25 08:00 07/19/25 10:09 07/19/25 10:09 07/19/25 10:09 07/19/25 09:15
Lab Data
07/19/25 04:31
07/19/25 04:31
Laboratory Results
07/18/25 07/19/25
16:13 04:31
PT 12.9 13.7
INR 0.93 1.00
APTT 24.1 25.6
Diagnostic Testing:
Physical Exam
-
HEENT: Normocephalic and Anicteric
Cardiovascular: S1/S2 and Peripheral Edema (negative)
Respiratory: Wheeze (negative), Rales (negative), Rhonchi (negative) and Non-Labored Respirations
GI: Soft, Distended (Abdominal obesity), Non Tender and Normal Bowel Sounds
Neurology: AO x 3, Tremors (negative) and Other (Pupils 3 mm bilaterally and brisk. Normal H test. Unable to shrug left shoulder against gravity. No movement at all in left upper extremity. Mild movement LLE/unable to lift antigravity, normal
sensation to light touch in all 4 extremities + face, left-sided facial droop with smiling)
Skin: Warm and Dry
General: Respiratory Distress (negative), Comfortable, Fever (negative) and Chills (negative)
Assessment
-
Assessment: 80-year-old male with a past medical history of prostate cancer s/p XRT (2017), history of melanoma (2005), thyroid nodule, history of depression, MARLIN on CPAP, ED, history of Peyronie's disease, history of bladder stone and mixed
hyperlipidemia who presented with facial droop and speech changes. Spouse noticed the symptoms. They began 1 hour prior to arrival to the ER. Left side of his body also felt weak and numb. Initial NIHSS of [address] head with stroke alert
performed showing no acute intracranial abnormality. CTA head/neck performed showing no acute intracranial process with no hemorrhage, no significant arterial stenosis, LVO or aneurysm. Also no significant arterial stenosis in the neck. A CT
perfusion scan was also performed. Patient is not anemic, with Hb 16.8, platelet count 194, INR 0.93, initial troponin <0.012, and POCT glucose of 94. Risks and benefits of tenecteplase were discussed with the patient and he agreed to receiving
this, and the medication was administered on 07/18/2025 at 1709. Patient then transferred to the ICU for close monitoring and candy forming machine operator services were consulted for additional management/recommendations.
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
Impression:
#Abrupt left hemibody weakness with dysphagia + dysarthria with concern for right MCA ischemic stroke s/p TNK with residual left-sided hemiplegia + left-sided facial droop
#History of prostate cancer s/p EBRT (2016)
#History of ED + Peyronie's disease
#History of bladder stone s/p cystolitholopaxy (05/2023)
#MARLIN on CPAP
Plan:
- Permissive hypertension with goal BP<180/105mmHg for first 24 hrs s/p TNK; then would keep BP<140/90
- Follow-up MRI brain tonight and if no evidence of ICH then would be best to start antiplatelet therapy. Will defer to neurology if mono versus dual platelet
- Will need to also start high intensity statin
- CUSTOMER EXPERIENCE STRATEGIST, PT/OT + PM&R
- Neurochecks and NIHSS per protocol
- Check echo with bubble study
- Maintain normothermia
- Maintain euglycemia with goal BG 140�180
- Neurology consulted and recommendations appreciated
- No blood thinners until at least 24 hours s/p TNK; also try to avoid fingersticks or blood draws until 24 hours s/p TNK
- Stat CT head for change in neurological status with notification to neurology
- Maintain SpO2 >90-94%; aspiration precautions
- Continue CPAP with sleep
- Maintain MAP>65
- Replete electrolytes with K>4, Mg>2
- Trend H/H and transfuse if needed to keep Hb>7-8g/dL + keep plt>100k
- prn nebulized bronchodilators - not currently bronchospastic
- Incentive spirometer encouraged 10x per hour for at least 4 hrs a day
- DVT ppx: SCDs for now
Continue ICU level of care for close neurological monitoring however if MRI brain performed this evening is negative for hemorrhage and does not show a large ischemic stroke which is at risk of hemorrhagic transformation, then will downgrade to
telemetry. Once downgraded then our service will sign off. Please call Pulmonary service if any questions or concerns.
Total time spent today was 78 minutes for this encounter. Time includes reviewing laboratory test/imaging results, reviewing pertinent medical records, obtaining and reviewing medical history, performing an appropriate exam, ordering medications,
tests and procedures. Time also includes documentation of this encounter, coordinating patient care and communicating with other healthcare professionals. Total time does not include separately billed tests performed on this date of service.
--- NOTE | 2025-07-19 09:09 | PTOTSP ---
Speech/Language Evaluation:
Pt presents with mild-moderate mixed dysarthria that impacted overall speech intelligibility at the sentence/conversation level.
Pt presents with mild aphasia, characterized by mild breakdowns in conversational word finding.
Recommendations:
1. Speech strategies: Speak at a slowed rate, overexaggerate to promote precision of articulators, take pauses between words, take breaks when fatigued.
2. F/U with ST to further assess speech, language, cognition, exercises for improved articulation and breath support.
3. Would benefit from therapy at the next level of care.
[2025-07-19 09:25] LABS: Hepatitis C Antibody Negative (Negative)
--- NOTE | 2025-07-19 09:30 | PTOTSP ---
Dysphagia Evaluation
Patient is at an acute elevated risk for dysphagia and aspiration given concern for acute CVA with left lower facial weakness, left lingual weakness, signs concerning for palatal weakness, dysphonia, and signs concerning for reduced breath support.
Risk factors for decreased tolerance of aspiration include changes to mobility due to LUE and LLE weakness.
Recommend:
1. Cautious IDDSI 6 Soft/Bite Sized and Thin Liquids
2. Medications: whole and/or crushed in puree
3. Strategies: FULL supervision, assist with set up as needed, single sips/bites, slow rate, remain upright for 30 minutes after PO intake
4. Oral care 3x daily to reduce risk for complications if aspiration were to occur
5. Instrumental swallow testing to objectively assess swallowing function, trial compensations, and determine appropriate diet level. Patient consented to FEES. Will complete when >24 hours s/p TNK.
--- NOTE | 2025-07-19 11:12 | CON.MR ---
Documented by User: Hubert De La Fuente MD, Resident 07/20/25 16:26
Consultation
Consultation Request
Date/Time Consultation Requested: 07/19/2025
Date/Time Consultation Performed: 07/20/2025
Requesting Provider: Dr. Alford
Performing Provider: Dr. Henderson
Reason for Consultation: CVA
Medical History
-
Chief Complaint: CVA
History of Present Illness:
Mr. Vitale is a 80 y/o male past medical history of depression, prostate cancer s/p radiation, MARLIN, thyroid mass s/p right hemithyroidectomy L hip replacement, melanoma, who presented with left sided weakness on 07/18. No history of stroke
hypertension hyperlipidemia or diabetes. Onset of symptoms was about one hour prior to arrival. Patient reports he initially just began not feeling well while shopping. He then developed difficulty with his speech, and worsening numbness with
weakness of his left side. His brought him directly to the emergency department for evaluation. In the ED NIHSS [address] showed no intracranial abnormality CTA showed no stenosis teleneurologist recommended tenecteplase. tenecteplase given
around 5 PM and symptoms were improving. Approximately 2 hours post TNK patient had worsening symptoms with inability to left left arm and speech difficulties, repeat CT scan was ordered which showed no intracranial abnormality but small
subarachnoid hemorrhage cannot be ruled out. Repeat CT scan head 6 hours later showed no intracranial abnormalities. Brain MRI on 07/19 6pm showed acute infarct in the right side of the milana measuring 2.0 x 1.0 cm with no intracranial hemmorhage.
Neurology recommended starting monotherapy with aspirin and statin, no plavix.
Past Medical History
Past Medical History: Cancer (Prostate s/p radiation, melanoma), Hypercholesterolemia, Psychiatric (Depression) and Other (MARLIN on cpap, thyroid mass, ED, Peyronie's disease)
Past Surgical History: Orthopedic (L hip replacement ) and Other (Right hemithyroidectomy, melanoma resection)
Family History
Family History: Reviewed & Not Pertinent
Social History
Functional Level Premorbidity:
Independent for all activities.
Current Funct Level: Ambulation, Transfer, UE/LE Dressing:
Bed mobility: Max assist
Transfer: Unable to assess due to safety
Ambulation: Unable to assess due to safety
ADL: Eating set up, lower extremity care dependent
Tobacco: Non-Smoker
Alcohol: Occasional
Drug: None
Personal:
Living: With Spouse
Is 24 hour care available: Yes
Number of Floors: 2
# Steps to Enter: 4
# Steps to Second Floor: 15
Potential First Floor Set Up: Yes
Driving: Yes
Employment: Employed
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
Allergies / Home Medications
Allergy/AdvReac Type Severity Reaction Status Date / Time
No Known Allergies Allergy Verified 07/18/25 16:07
�Medication �Instructions �Recorded �Confirmed �Last Taken �Type
escitalopram oxalate 10 mg tablet 10 mg PO HS Mental Health/Anxiety 07/18/25 07/18/25 07/17/25 History
(Lexapro)
Review Of Systems
-
History Source: Patient and Family
Constitutional: Reports No Symptoms; Denies Fever or Weight Loss
Eye: Reports No Symptoms; Denies Blurry Vision or Visual Field Cut
EENT: Reports No Symptoms; Denies Sore Throat or Runny Nose
Respiratory: Reports No Symptoms; Denies Cough or Trouble Breathing
Cardiac: Reports No Symptoms; Denies Chest Pain or Palpitations
Abdomen/GI: Reports Constipated; Denies Abdominal Pain, Nausea, Vomiting or Diarrhea
: Reports No Symptoms; Denies Dysuria
Musculoskeletal: Reports No Symptoms; Denies Joint Pain
Neurological: Reports Weakness; Denies Dizzy or Headache
Physical Exam
Active Medications
Generic Name Dose Route Start Last Admin
Trade Name Freq PRN Reason Stop Dose Admin
Acetaminophen 650 mg 07/18/25 17:55
Acetaminophen 325 Mg Tablet PO 08/15/25 17:54
Q4HPRN PRN
PINEDA, mild pain, or temp >100.4F
Atorvastatin Calcium 80 mg 07/19/25 18:00
Atorvastatin (Lipitor) 80 Mg Tablet PO 08/16/25 17:59
QPM SANTANA
Escitalopram Oxalate 10 mg 07/18/25 22:00 07/18/25 23:12
Escitalopram 10 Mg Tablet PO 08/15/25 21:59 10 mg
HS SANTANA Administration
Sodium Chloride 0 flush 07/18/25 19:00
Sodium Chloride 0.9% (Flush) Syringe IV 08/15/25 18:59
PER PROTOCOL SANTANA
Vital Signs
Temp Pulse Resp BP Pulse Ox
97.9 F 66 15 153/92 95
07/19/25 08:00 07/19/25 10:09 07/19/25 10:09 07/19/25 10:09 07/19/25 09:15
Height 5 ft 8 in
Actual Weight 102.6 kg
Body Mass Index (BMI) 34.4
Physical Exam
Physical Exam:
General Appearance/Observation: Well-developed, well-nourished individual in no apparent distress.
Pain/Comfort Assessment: Denies
Mood/Affect: Appropriate
Integumentary/Operative Site:
Pressure Ulcer: absent
Other Type of Wound: absent
Eyes: Conjunctiva/Lids: normal Pupils: pupils equal round and reactive to light and Accommodation
Ears/Nose/Throat: oral mucosa moist, throat clear. Lips/Teeth/Gums: normal
Neck: No muscle spasm or tenderness
Cardiovascular: Heart: Bradycardic regular rhythm, no murmur
Pulses: dorsalis pedis 2+ bilaterally
Respiratory: Respiratory Effort/Chest Expansion: normal Auscultation: Clear to auscultation bilaterally
Gastrointestinal: abdomen not tender, mild distension, normal abdominal bowel sounds
Genitourinary: No Hale
Rectal Exam: Deferred
Extremities: Edema: None Cyanosis: None Trophic changes: None
Neurology Exam:
Orientation: Alert, Oriented to self, Time, Place, situation
Memory: Intact immediately and at 3 minutes
Higher cortical function
Speech: Intact, dysarthric
Repetition: Intact
Comprehension: Intact
Two step command: Intact
Naming: Intact
Cranial Nerves:
CNII: Pupillary light reflex: Intact Visual Field: Intact
CN III, IV, : Extraocular muscles: Intact
CN V: Facial Sensation at Forehead: Intact , Maxilla: Intact, Mandible: Intact
CN VII: Facial movement: Left upper lower facial weakness
CN VIII: Hearing: Normal
CN IX/X: Speech & swallow: Normal, Position of Uvula: Midline
CN XI: Shoulder shrug: Symmetric
CN XII: Tongue protrusion: Midline
Sensory:
Light touch: Intact in bilateral upper and lower extremities
Pinprick: Intact
Proprioception: Intact
Reflexes:
Biceps: 2+ bilaterally
Brachioradialis: 2+ bilaterally
Triceps: 2+ bilaterally
Patellar: 2+ bilaterally
Achilles: 2+ bilaterally
Babinski: Downgoing bilaterally
Clonus: None
Lyly: Negative bilaterally
Cerebellar: Dysmetria/Ataxia: None
Musculoskeletal:
Motor: (Manual muscle scale 0-5)
Muscle SA EF WE EE FF FA HF KE DF EHL PF
Right 5 5 5 5 5 5 5 5 5 5 5
Left 0 0 0 0 0 0 2 3 0 0 0
Tone: Normal in all extremities
Range of Motion: Passively within normal limits in all extremities
Lab Results
07/19/25 04:31
07/19/25 04:31
WBC 7.2 10^3/uL (4.8-10.8) 07/19/25 04:31
Hgb 15.6 g/dL (13.0-18.0) 07/19/25 04:31
Hct 45.5 % (39.0-52.0) 07/19/25 04:31
MCV 93.0 fL (80.0-94.0) 07/19/25 04:31
Plt Count 194 10^3/uL (130-400) 07/19/25 04:31
PT 13.7 Sec (11.4-14.6) 07/19/25 04:31
INR 1.00 07/19/25 04:31
Sodium 139 mmol/L (135-145) 07/19/25 04:31
Potassium 4.4 mmol/L (3.5-5.1) 07/19/25 04:31
Chloride 107 mmol/L (98-107) 07/19/25 04:31
Carbon Dioxide 25 mmol/L (22-30) 07/19/25 04:31
BUN 17 mg/dl (9-20) 07/19/25 04:31
Creatinine 0.7 mg/dL (0.7-1.3) 07/19/25 04:31
eGFR > 60.00 07/19/25 04:31
Glucose 92 mg/dl (70-99) 07/19/25 04:31
Hemoglobin A1c 6.0 % (4.0-5.6) H 07/19/25 04:31
Calcium 9.2 mg/dl (8.4-10.2) 07/19/25 04:31
Phosphorus 3.3 mg/dl (2.5-4.5) 07/18/25 16:56
Magnesium 2.2 mg/dl (1.6-2.3) 07/19/25 04:31
Total Bilirubin 0.7 mg/dl (0.2-1.3) 07/18/25 16:56
AST 34 U/L (17-59) 07/18/25 16:56
ALT 43 U/L (0-50) 07/18/25 16:56
Alkaline Phosphatase 46 U/L (38-126) 07/18/25 16:56
Total Protein 6.4 g/dl (6.3-8.2) 07/18/25 16:56
Albumin 3.8 g/dl (3.5-5.0) 07/18/25 16:56
Diagnostic Results
As per HPI.
Assessment / Plan
Assessment
Patient is a 80-year-old man with pmh notable for prostate CA (XRT 2017), MARLIN, thyroid mass (s/p R hemithyroidectomy) who presented with slurred speech, left-sided facial droop, left UE & LE numbness and weakness, with MRI showing right pontine
acute strokenow s/p TNK and stable.
Plan
PM&R PT/OT to increase independence with ADLs, improve balance, coordination, endurance, strength, mobility, community reintegration, decreased burden of care on others and family education.
CVA: Secondary prophylaxis with aspirin, statin, and blood pressure control (SBP less than 180 and diastolic less than 100 to participate with therapy for ischemic stroke). Continue to monitor neurologic status.
Left nondominant hemiparesis: High risk for falls and sliding out of chair/bed. Safety reinforced.
- Avoid using affected arm to help lift or pull patient as this will cause trauma to the shoulder.
Dysphagia: speech evaluation, oral care protocol, chlorhexidine rinse after meals and HS, aspiration precautions. Advance diet as tolerated.
Dysarthria: speech evaluation
Hard of hearing: Patient is having difficulty with hearing and we discussed the need for hearing aids to properly engage in conversations and not be dismissed by others because not able to understand what they're saying. This can lead to isolation,
depression and cognitive decline. Suggest ENT/audiology evaluation.
HTN: continue medications, monitor closely
HLD: Statin
Skin: monitor for pressure sores/rashes/lesions.
Pain: acetaminophen or oxycodone as needed.
Bowel: Colace and Senna, PRN bisacodyl.
Bladder: Time void, PVRs, PRN straight cath.
GI Prophylaxis: Pantoprazole
DVT Prophylaxis: SCDs, lovenox ok per neuro
Safety: Continue to reinforce assistance with all transfers.
Code Status: Full code
Dispo: Acute rehab, patient will benefit from PT/OT/ST to increase independence with ADLs, improve balance, coordination, endurance, strength, mobility, community reintegration, decreased burden of care on others and family education.
Functional and Medical Goals: Modified Independent with ADL�s, ambulation, transfers
Summary
-
Things that must be addressed in Hospital prior to discharge:
Patient must be stable on oral pain medications.
Blood pressure must be less than 180 systolic and 100 diastolic for 24 hours before being stable for transfer to SNF/acute rehab.
Please give blood pressure parameters.
Discharge Destination: Acute rehab, patient will benefit from PT/OT/ST to increase independence with ADLs, improve balance, coordination, endurance, strength, mobility, community reintegration, decreased burden of care on others and family education.
Summary of recommendations:
- Discharge Destination: Acute rehab, patient will benefit from PT/OT/ST to increase independence with ADLs, improve balance, coordination, endurance, strength, mobility, community reintegration, decreased burden of care on others and family
education.
Thank you for allowing me to care for your patient. Please contact me with any questions or concerns.
Comments
-
This note was dictated using a voice recognition system. Please excuse any typographical errors from title clerk. If you believe there are any discrepancies, please notify our office.

Documented by User: Reynaldo Henderson MD 07/20/25 22:30
Review Of Systems
-
Psych: Reports No Symptoms
Physical Exam
Physical Exam
Physical Exam:
General Appearance/Observation: Well-developed, well-nourished male in no apparent distress.
Pain/Comfort Assessment: Denies
Mood/Affect: Appropriate
Integumentary/Operative Site:
Pressure Ulcer: absent
Eyes: Conjunctiva/Lids: normal Pupils: pupils equal round and reactive to light and Accommodation
Ears/Nose/Throat: oral mucosa moist, throat clear. Lips/Teeth/Gums: normal
Neck: No muscle spasm or tenderness
Cardiovascular: Heart: regular rate, no murmur
Pulses: dorsalis pedis 2+ bilaterally
Respiratory: Respiratory Effort/Chest Expansion: normal Auscultation: Clear to auscultation bilaterally
Gastrointestinal: abdomen not tender, mild distension, normal abdominal bowel sounds
Genitourinary: No Hale
Rectal Exam: Deferred
Extremities: Edema: None Cyanosis: None Trophic changes: None
Neurology Exam:
Orientation: Alert, Oriented to self, Time, Place, situation
Memory: Intact immediately and at 3 minutes
Speech: Intact,
Repetition: Intact
Comprehension: Intact
Two step command: Intact
Naming: Intact
Cranial Nerves:
CNII: Pupillary light reflex: Intact Visual Field: Intact
CN III, IV, : Extraocular muscles: Intact
CN V: Facial Sensation at Forehead: Intact , Maxilla: Intact, Mandible: Intact
CN VII: Facial movement: Left upper lower facial weakness
CN VIII: Hearing: Normal
CN IX/X: Speech & swallow: dysarthric, dysphagia, hypophonia, wet voice, Position of Uvula: Midline
CN XI: Shoulder shrug: decreased on left
CN XII: Tongue protrusion: Midline
Sensory:
Light touch: Intact in bilateral upper and lower extremities
Pinprick: Intact
Proprioception: Intact
Reflexes:
Biceps: 2+ bilaterally
Brachioradialis: 2+ bilaterally
Triceps: 2+ bilaterally
Patellar: 2+ bilaterally
Achilles: 2+ bilaterally
Babinski: Downgoing bilaterally
Clonus: None
Lyly: Negative bilaterally
Cerebellar: Dysmetria/Ataxia: None
Musculoskeletal: Motor: (Manual muscle scale 0-5)
Muscle SA EF WE EE FF FA HF KE DF EHL PF
Right 5 5 5 5 5 5 5 5 5 5 5
Left 0 0 0 0 0 0 2 3 0 0 0
Tone: Normal in all extremities
Range of Motion: Passively within normal limits in all extremities
Assessment / Plan
Assessment
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
Plan
PM&R PT/OT to increase independence with ADLs, improve balance, coordination, endurance, strength, mobility, community reintegration, decreased burden of care on others and family education.
CVA: Secondary prophylaxis with aspirin, statin, and blood pressure control (SBP less than 180 and diastolic less than 100 to participate with therapy for ischemic stroke). Continue to monitor neurologic status.
Left nondominant hemiparesis: High risk for falls and sliding out of chair/bed. Safety reinforced.
- Avoid using affected arm to help lift or pull patient as this will cause trauma to the shoulder.
Dysphagia: speech, oral care protocol, aspiration precautions. Advance diet as tolerated.
-With pontine CVA watch progressive dysphagia. Spoke with patient and told him to be mindful of worsening swallow with increased coughing.
Dysarthria: speech
Hypophonia with wet vocal quality: speech
Hard of hearing: Patient is having difficulty with hearing and we discussed the need for hearing aids to properly engage in conversations and not be dismissed by others because not able to understand what they're saying. This can lead to isolation,
depression and cognitive decline. Suggest ENT/audiology evaluation.
HTN: lisinopril 10 mg, monitor closely
HLD: Statin
Skin: monitor for pressure sores/rashes/lesions.
Pain: acetaminophen as needed.
Bowel: Colace and Senna, PRN bisacodyl.
Bladder: Time void, PVRs, PRN straight cath.
GI Prophylaxis: Pantoprazole
DVT Prophylaxis: SCDs, lovenox ok per neuro
Safety: Continue to reinforce assistance with all transfers.
Code Status: Full code
Dispo: Acute rehab, patient will benefit from PT/OT/ST to increase independence with ADLs, improve balance, coordination, endurance, strength, mobility, community reintegration, decreased burden of care on others and family education.
Functional and Medical Goals: Modified Independent with ADL�s, ambulation, transfers
Attending Statement: I performed a history and examined the patient today.� I reviewed the care plan with therapy, nursing, and the resident.� I agree with the history and ROS above as modified.� The physical exam and plan documented reflects my
examination and plan.� A total of 60 minutes were spent with the patient preparing for the evaluation, obtaining history, performing examination and evaluation, counseling, data review, case management, care coordination, bordereau clerk, and EMR
documentation.
Summary
-
Summary of recommendations:
- Discharge Destination: Acute rehab, patient will benefit from PT/OT/ST to increase independence with ADLs, improve balance, coordination, endurance, strength, mobility, community reintegration, decreased burden of care on others and family
education.
Thank you for allowing me to care for your patient. Please contact me with any questions or concerns.
--- NOTE | 2025-07-19 12:51 | CM ---
Met with patient and at bedside
Phamacy verified: [facility] @ [address] [facility]
Patient lives w/ ; multilevel farm house; 3 steps to enter; 12-13 steps to 2nd floor; half bath on 1st floor; down 3 steps from main floor to outside enclosed shower stall
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
No SNF utilization history; no recent home health services
drives; Transport to be determined
PT assessment on hold for 24 hours; PM&R completed; referral sent to [facility] via [facility]
Plan: Discharge to acute rehab hospital when medically stable
[2025-07-19 14:22] LABS: C-Reactive Protein < 5.00 mg/L (0.0-10.00)
--- NOTE | 2025-07-19 15:36 | CARDSERVLU ---
Echocardiogram with Lumason completed after protocol screening completed. Allergies verified.
Patent IV site: _R AC____
IV site flushed with 0.9% NaCl pre and post administration.
Diluted bolus method utilized to enhance visualization of ventricular solomon.
Total volume given: ___2.5_ mL
Patient tolerated all procedures well without complications.
[2025-07-19] MEDS: LOW STRENGTH ASPIRIN 81 MG PO (18:54)
[2025-07-19] MEDS: LIPITOR 80 MG PO (18:54)
--- NOTE | 2025-07-19 19:00 | PTCARENOTE ---
patient AAO x 3; Niesha assessment no changes (see neuro assessment ) . Patient taking to MRI brain f/u post TNK Result pending
--- NOTE | 2025-07-19 20:00 | PTCARENOTE ---
on assessment pt AAOx3, slurred speech and L facial droop, unchanged from last assessment, NIH 8, L sided weakness, SR/SB on the monitor, RA, own CPAP at bedside, swallows pills whole without issue, no coughing noted, uses urinal, no complaints at
this time, call fleming in reach
[2025-07-19] MEDS: LEXAPRO 10 MG PO (21:03)
[2025-07-20] VITALS (19 sets, daily range): BP systolic 129–181; BP diastolic 70–129; PULSE 51–54; BMI 34.5
--- NOTE | 2025-07-20 | PTCARENOTE ---
pt with own CPAP, appears to be resting comfortably in bed, call fleming in reach
--- NOTE | 2025-07-20 04:05 | PTCARENOTE ---
no changes from prior assessment, call fleming in reach
[2025-07-20 04:06] LABS: Hematocrit 47.5 % (39.0-52.0); Hemoglobin 16.4 g/dL (13.0-18.0); Mean Corp Hgb Conc. 34.5 g/dL (33.0-37.0); Mean Corpuscular Volume 94.8 fL (80.0-94.0); Nucleated Red Blood Cells % 0 % (-); Platelet Count 197 10^3/uL (130-400); Red Cell Dist. Width 12.4 % (11.5-14.5)
--- NOTE | 2025-07-20 07:30 | PTCARENOTE ---
Received patient arousable from sleep, A&Ox4, NIH 8, on RA, SB w/ 1st AVB and PACs, BP WNL, GI/ continent.
--- NOTE | 2025-07-20 07:30 | W.PN.HOSP.TC ---
Addendum entered and electronically signed by Allan Talamantes MD 07/21/25 12:17:
Most likely acute CVA involving right MCA territory per neurology
S/p TNK on 07/19
Started asa
-per neuro no plavix
Lipitor
MRI with acutre right milana cva
PT OT
PM&R
For AIR
Htn
Start lisinopril
Original Note:
Today's Communication/Plan
-
- Continue aspirin 81mg
- Holding off on clopidogrel, per neuro
- Swallow video study today
- Downgrade to tele
- Start lisinopril
- Pending PT/OT and PM&R eval
Assessment / Plan
Assessment / Plan
Jonathan Fernando is a 80-year-old man with pmh notable for prostate CA (XRT 2016), MARLIN, thyroid mass (s/p R hemithyroidectomy) who presented with slurred speech, left-sided facial droop, left UE & LE numbness and weakness, now s/p TNK and stable.
#Ischemic stroke
Patient presented with left-sided facial droop, left-sided numbness and weakness, and slurred speech. Presentation c/w R hemisphere infarct. NIH stroke scale 6 on admission. Patient is not on blood thinners at home; no known hx of stroke, HTN, HLD,
DM. Patient received TNK at 5:09 PM on 07/18. Head CT x 2 with no intracranial hemorrhage or abnormality. CTA head and neck (07/18) with no significant stenosis. Early am, pt able to lift left arm and leg against gravity and dysarthria has also
improved. Lipid panel returned wnl; although LDL 121, borderline high. EKG with sinus adonis, 1st degree AV block with PVCs.
Additional w/u of etiology: CRP wnl <5. Hepatitis serologies negative. Echo (07/19): LVEF>70%, no significant valvular dz, normal ventricular size w/o wall motion abnormalities. Bubble study negative. MRI brain (07/19): with evidence of acute infarct
in R milana measuring 2.0 x 1.0 cm; without evidence of ICH. Given elevated pt a1c 6, elevated BP, BMI 34, borderline LDL, potentially w unrecognized ASCVD risk given lack of regular monitoring; vasospasm w HTN.
This am, pt without changes to sx.
- Continue aspirin 81mg daily
- Holding on clopidogrel per neuro, c/f elevated bleeding risk
- Continue atorvastatin 80mg daily
- Goal LDL<70
- Plan for video swallow study today
- PT/OT consulted
- Seen by PM&R, referral sent to [facility]
- Neurology consulted, appreciate recs
- Downgrade to telemetry
#Elevated blood pressure
BP 188/101 on admission. Goal to maintain BP <140/90. Has not received any anti-HTN meds inpt.
This am, BP ranging 129/85-143/107. Repeat bedside BP this am 181/113. Likely component of frustration/agitation/exertion & underlying dz.
- Start 10mg daily lisinopril
- Continue to monitor
#Elevated A1c, prediabetes
A1c 6.0 this admission. No documented hx T2DM. Glucose levels in 90s this admission.
- Continue to monitor glucose
- Start low-dose insulin sliding scale if glucose elevated >150
#Chronic
-Depression-continue Lexapro
#Global
- DVT PPx: lovenox
- Diet: Per speech, cautious IDDSI 6 soft and bite sized and thin liquids with single sips and meds in pur�e
- Code: Full
-Dispo: To acute rehab versus to home with outpatient PT, pending PT/OT eval; referral sent to [facility]
Anticipated Discharge: Within 24 hours
Subjective/Interval History
-
Date of Service: July 20, 2025
Pt in low spirits today, frustrated with L-sided weakness. Otherwise, denies any change in L-sided face, UE, LE symptoms; thinks there is no change in his dysarthria. Denies any CP, SOB. Understands plan for rehab/PT eval.
Objective Data
-
Labs:
Laboratory Results
07/20/25 07/20/25
03:31 04:03
WBC 6.2
Hgb 16.4
Hct 47.5
Plt Count 197
Sodium Cancelled Pending
Potassium Cancelled Pending
Chloride Cancelled Pending
Carbon Dioxide Cancelled Pending
BUN Cancelled Pending
Creatinine Cancelled Pending
Glucose Cancelled Pending
Calcium Cancelled Pending
Total Bilirubin Cancelled Pending
AST Cancelled Pending
ALT Cancelled Pending
Alkaline Phosphatase Cancelled Pending
Vital Signs:
Vital Signs
Temp Pulse Resp BP Pulse Ox
98.5 F 53 15 143/107 98
07/20/25 03:59 07/20/25 06:30 07/20/25 06:30 07/20/25 06:00 07/20/25 04:01
I&O
07/19/25 07/20/25 07/21/25
06:59 06:59 06:59
Output Total 1300 / 1300 925 / 925
Balance -1300 / -1300 -925 / -925
Review of Systems
-
History Source: Patient
Constitutional: Reports No Symptoms
Respiratory: Reports No Symptoms
Cardiac: Reports No Symptoms
Musculoskeletal: Reports Other (LUE, LLE, L face weakness )
Psych: Reports Depressed
Physical Exam
-
General: Well Developed and Well Nourished
HEENT: Normocephalic, Atraumatic and Anicteric
Respiratory: Non Labored Respirations
Cardiac: Regular Rhythm
GI: Nondistended
Skin: Warm and Dry
Neuro: Awake, Alert, Oriented, No Motor Deficits (can lift LLE off bed 1-2' from hip with maximal effort; cannot wiggle L toes/move L foot; cannot close L hand/move L fingers; can lift L arm from shoulder 1' with maximal effort) and Slurred Speech
(dysarthria)
Psych: Other (frustrated, disheartened when trying to move L-side arm & leg )
Data Reviewed
-
Total Time Spent with Patient (in minutes): 15
Critical Care Time (in minutes): 45
MRI: Image personally visualized and interpreted and Report Reviewed by me
Labs: Labs Reviewed by me
--- NOTE | 2025-07-20 07:39 | W.PN.NEURO.1 ---
Today's Communication / Plan
-
start aspirin 81 mg daily
goal LDL <70, current LDL 121 started atorvastatin 80 mg at bedtime
Speech, PT, OT evaluations needed
can be started on Enoxaparin subcutaneous for DVT prophylaxis
Neuro Assessment/Plan
Assessment
80 year-old right-handed male with past medical history of depression, prostate CA (XRT 2017), MARLIN, thyroid mass status right hemithyroidectomy presented to [facility] on 07/18/2025 for evaluation of slurred speech, left facial droop and left sided
weakness s/p TNK.
Head CT 07/19/2025 0829: No acute intracranial abnormality.
Head CT 07/18/2025 1922: No acute intracranial infarct, acute intracranial/intraventricular hemorrhage or extra-axial fluid collection. Please note, as result of some residual contrast from CT earlier in same day, although not definitively
identified, small volume subarachnoid hemorrhage cannot be excluded. Findings again seen compatible with diffuse cortical atrophy with nonspecific white matter changes as described above.
CT perfusion 07/18/2025:
CBF <30% Volume: 0 mL (estimate of ischemic core)
Tmax >6 second Volume: 0 mL (critically hypoperfused tissue)
CBF/Tmax Mismatch Volume: 0 mL (ischemic penumbra)
CBF/Tmax Mismatch Ratio: None
Hypoperfusion Index (Tmax >10s/Tmax >6s): N/A (predicts rate of collateral flow, infarct growth, and clinical outcome)
CBV Index (rCBV in Tmax >6s): N/A
CT Brain 07/18/2025 1651: No acute intracranial process. Specifically, no evidence of acute hemorrhage.
CTA Head 07/18/2025 1651: No significant arterial stenosis or large vessel occlusion. No aneurysm. Mild atherosclerotic calcifications of the bilateral carotid siphons without significant stenosis.
CTA Neck 07/18/2025 1651: No significant arterial stenosis.
CT head 07/18/2025 1626: No acute intracranial abnormality. ASPECT score: 10
Received TNK at 1701 on 07/18/2025
Labs: LDL 121, Hgb A1C 6.0
Impressions: Abrupt onset of dysphasia and left hemiparesis due to acute ischemic stroke in the right medullo-pontine border
Plan
start aspirin 81 mg daily
goal LDL <70, current LDL 121 started atorvastatin 80 mg at bedtime
Speech, PT, OT evaluations needed
can be started on Enoxaparin subcutaneous for DVT prophylaxis
Will follow as needed
Subjective/Objective
Subjective Data
Date of Service: July 20, 2025
Objective Data
Vital Signs
Temp Pulse Resp BP Pulse Ox
36.9 C 53 15 143/107 98
07/20/25 03:59 07/20/25 06:30 07/20/25 06:30 07/20/25 06:00 07/20/25 04:01
Lab Results
07/20/25 03:31
PT 13.7 Sec (11.4-14.6) 07/19/25 04:31
INR 1.00 07/19/25 04:31
APTT 25.6 Sec (23.4-35.0) 07/19/25 04:31
Sodium Cancelled 07/20/25 03:31
Potassium Cancelled 07/20/25 03:31
BUN Cancelled 07/20/25 03:31
Glucose Cancelled 07/20/25 03:31
Calcium Cancelled 07/20/25 03:31
Phosphorus 3.3 mg/dl (2.5-4.5) 07/18/25 16:56
LDL Cholesterol, Calc 121 mg/dl 07/19/25 04:31
Patient Allergies
No Known Allergies Allergy (Verified 07/18/25 16:07)
Data Reviewed
-
MRI Head: Image Reviewed
Reviewed with: Nurse Practioner
Old Records: Summarized
[2025-07-20] MEDS: LOW STRENGTH ASPIRIN 81 MG PO (08:47)
[2025-07-20] MEDS: ZESTRIL 10 MG PO (10:39)
[2025-07-20 11:13] LABS: ALT (SGPT) 42 U/L (0-50); AST (SGOT) 34 U/L (17-59); Albumin 4.6 g/dl (3.5-5.0); Alkaline Phosphatase 58 U/L (38-126); Blood Urea Nitrogen 22 mg/dl (9-20); Calcium 9.6 mg/dl (8.4-10.2); Carbon Dioxide 30 mmol/L (22-30); Chloride 102 mmol/L (98-107); Estimated Creatinine Clearance 89 ml/min; Glucose 97 mg/dl (70-99); Magnesium 2.1 mg/dl (1.6-2.3); Potassium 3.9 mmol/L (3.5-5.1); Sodium 139 mmol/L (135-145); Total Protein 7.4 g/dl (6.3-8.2); eGFR > 60.00
--- NOTE | 2025-07-20 13:35 | CM ---
Anticipate discharge tomorrow. 07/21/25. [facility] has accepted patient. No insurance auth required.
Nurse to Nurse report #: [phone]
--- NOTE | 2025-07-20 15:00 | PTCARENOTE ---
Patient arrived on 4W from ICU. Oriented to room and unit, [facility] [[email or web address]] at 8.
--- NOTE | 2025-07-20 16:43 | PTOTSP ---
Speech Therapy VSE:
Patient presents with mild oral and mild � moderate pharyngeal dysphagia. Swallow delay in conjunction with delayed laryngeal vestibule closure resulted in responsive aspiration (PAS 7) with thin liquids via straw. Laryngeal penetration (PAS 2-3)
seen with thin liquids via teaspoon/cup and mildly thick liquids via cup. No significant pharyngeal retention observed. Suspect etiology of swallow function likely related to acute CVA. Please see patient care note for full details of
penetration/aspiration and swallowing physiology.
Recommend:
1. Continue IDDSI 6 (soft and bite sized solids), thin liquids via cup (no straws)
2. Medications: whole vs crushed in puree
3. Strict aspiration precautions: NO STRAWS, full supervision, assist with set up as needed, single sips/bites, slow rate, remain upright for 30 minutes after PO intake
4. Modifiable risk factors for aspiration pneumonia including encouraging frequent and thorough oral care, pulmonary hygiene measures, and increasing physical mobility as medically feasible
5. SAW OFFBEARER to follow for further education regarding results and recommendations of study, to assess tolerance of diet, and assess for solid advancement per discretion of treating SAW OFFBEARER
[2025-07-20] MEDS: LOVENOX 40 MG SC (18:25)
[2025-07-20] MEDS: LIPITOR 80 MG PO (18:25)
[2025-07-20] MEDS: MIRALAX 17 GRAMS PO (20:21)
[2025-07-20] MEDS: LEXAPRO 10 MG PO (22:01)
[2025-07-21 03:40] VITALS: BP 121/72
[2025-07-21 08:00] VITALS: BP 165/99
[2025-07-21 08:41] LABS: Hematocrit 50.4 % (39.0-52.0); Hemoglobin 17.3 g/dL (13.0-18.0); Mean Corp Hgb Conc. 34.3 g/dL (33.0-37.0); Mean Corpuscular Volume 94.7 fL (80.0-94.0); Nucleated Red Blood Cells % 0 % (-); Platelet Count 195 10^3/uL (130-400); Red Cell Dist. Width 12.5 % (11.5-14.5)
[2025-07-21] MEDS: LOW STRENGTH ASPIRIN 81 MG PO (08:55)
[2025-07-21] MEDS: ZESTRIL 10 MG PO (08:55)
[2025-07-21 09:07] LABS: ALT (SGPT) 41 U/L (0-50); AST (SGOT) 32 U/L (17-59); Albumin 4.2 g/dl (3.5-5.0); Alkaline Phosphatase 56 U/L (38-126); Blood Urea Nitrogen 22 mg/dl (9-20); Calcium 9.6 mg/dl (8.4-10.2); Carbon Dioxide 26 mmol/L (22-30); Chloride 107 mmol/L (98-107); Estimated Creatinine Clearance 89 ml/min; Glucose 106 mg/dl (70-99); Potassium 4.6 mmol/L (3.5-5.1); Sodium 140 mmol/L (135-145); Total Protein 6.9 g/dl (6.3-8.2); eGFR > 60.00
[2025-07-21] MEDS: MIRALAX 17 GRAMS PO (09:08)
[2025-07-21 11:00] VITALS: BP 138/75
--- NOTE | 2025-07-21 11:56 | CM ---
Pt discharge to [facility] today.
Nurse to Nurse report #: [phone]
[2025-07-21 11:59] VITALS: BP 138/75
--- NOTE | 2025-07-21 12:17 | W.PN.UPDATE ---
Update Note
Progress Note Update
Acute CVA right Megan
S/p TNK on 07/19
Started asa
-per neuro no plavix
Lipitor
MRI with acutre right megan cva
PT OT
PM&R
For AIR
Htn
Start lisinopril
Cleared for AIR when bed available
--- NOTE | 2025-07-21 14:51 | W.PN.HOSP.TC ---
Addendum entered and electronically signed by Allan Talamantes MD 07/21/25 17:33:
see update note
Original Note:
Today's Communication/Plan
-
DC to acute rehab
Assessment / Plan
Assessment / Plan
Jonathan Fernando is a 80-year-old man with pmh notable for prostate CA (XRT 2016), MRALIN, thyroid mass (s/p R hemithyroidectomy) who presented with slurred speech, left-sided facial droop, left UE & LE numbness and weakness, now s/p TNK and stable.
#$Acute right pontine ischemic stroke:
Slurred speech with left-sided facial droop numbness and weakness.
S/p TNK on 07/19
Echo (07/19): LVEF>70%, no significant valvular dz, normal ventricular size w/o wall motion abnormalities. Bubble study negative.
MRI brain (07/19): with evidence of acute infarct in R milana measuring 2.0 x 1.0 cm; without evidence of ICH.
- Continue aspirin 81mg daily. No Plavix per neuro
- Continue statin goal LDL<70
- Speech swallow eval with recommendation for IDDSI level 6 with thin liquids without straws. Aspiration precautions
- For DC to [facility] today
- Appreciate neuro
Essential hypertension:
Elevated blood pressures while admitted
- On no antihypertensives prior to admit. started lisinopril 10mg while inpatient, continue.
- Follow-up with PCP outpatient. Will need BMP in 2 weeks
#Elevated A1c, prediabetes
A1c 6.0 this admission. No documented hx T2DM. Will benefit from dietary and lifestyle change
#Chronic
-Depression-continue Lexapro
#Global
- DVT PPx: lovenox
- Diet: Per speech, cautious IDDSI 6 soft and bite sized and thin liquids with no straws
- Code: Full
-Dispo: To acute rehab versus to home with outpatient PT, pending PT/OT eval; referral sent to [facility]
Anticipated Discharge: Today
Subjective/Interval History
-
Date of Service: July 21, 2025
Objective Data
-
Labs:
Laboratory Results
07/21/25
08:25
WBC 8.4
Hgb 17.3
Hct 50.4
Plt Count 195
Sodium 140
Potassium 4.6
Chloride 107
Carbon Dioxide 26
BUN 22 H
Creatinine 0.8
Glucose 106 H
Calcium 9.6
Total Bilirubin 1.0
AST 32
ALT 41
Alkaline Phosphatase 56
Vital Signs:
Vital Signs
Temp Pulse Resp BP Pulse Ox
98 F 56 16 138/75 95
07/21/25 11:00 07/21/25 11:00 07/21/25 11:00 07/21/25 11:00 07/21/25 11:00
I&O
07/20/25 07/21/25 07/22/25
06:59 06:59 06:59
Intake Total 720 / 720
Output Total 925 / 925 1325 / 1325
Balance -925 / -925 -605 / -605
Review of Systems
-
History Source: Patient
Respiratory: Denies Trouble Breathing
Cardiac: Denies Chest Pain or Syncope
Abdomen/GI: Denies Abdominal Pain, Nausea or Vomiting
Neuro: Reports Weakness (And sided weakness), Numbness (Left upper and lower extremity) and Other (Speech slurring); Denies Dizzy or Lightheadedness
Physical Exam
-
General: No Apparent Distress and Comfortable
HEENT: Moist Mucous Membranes, Anicteric and PERRLA
Respiratory: Clear to Auscultation and Non Labored Respirations; Negative Wheezes, Rales, Rhonchi or Crackles
Cardiac: Regular Rhythm and S1/S2; Negative Murmur, Rub or Calf Tenderness
GI: Soft, Nontender, Nondistended and Normal Bowel Sounds
Musculoskeletal: No Clubbing, No Cyanosis and No Edema
Skin: Warm and Dry
Neuro: Awake, Alert, Oriented, Slurred Speech, Facial Droop and Other (Significant left-sided weakness and sensory deficit. left-sided facial droop, dysarthria. Extraocular motor movement full and smooth); Negative Tremors
Psych: Calm
== END 2025-07-21 14:29 | DRG 62 ==
LOC: 4 WEST ACU 17:33
PROVIDERS: Physician Assistant Medical; Student in an Organized Health Care Education/Training Program; ADMITTING PHYSICIAN Hospitalist; ATTENDING PHYSICIAN Hospitalist; CONSULT PHYSICIAN Internal Medicine Critical Care Medicine; CONSULT PHYSICIAN Physical Medicine & Rehabilitation; CONSULT PHYSICIAN Psychiatry & Neurology Neurology; EMERGENCY PHYSICIAN Emergency Medicine; FAMILY PHYSICIAN Family Medicine
PROC: 3E03317 Introduction of Other Thrombolytic into Peripheral Vein, Percutaneous Approach (ICD-10-PCS; 2025-07-18)
PROC: 5A09357 Assistance with Respiratory Ventilation, Less than 24 Consecutive Hours, Continuous Positive Airway Pressure (ICD-10-PCS; 2025-07-21)
DX: I63.29 Cerebral infarction due to unspecified occlusion or stenosis of other precerebral arteries (principal); G81.94 Hemiplegia, unspecified affecting left nondominant side; R29.706 NIHSS score 6; R47.02 Dysphasia; R29.810 Facial weakness; R29.708 NIHSS score 8; E89.0 Postprocedural hypothyroidism; I10 Essential (primary) hypertension; F32.A Depression, unspecified; I25.10 Atherosclerotic heart disease of native coronary artery without angina pectoris; E78.2 Mixed hyperlipidemia; N48.6 Induration penis plastica; R13.10 Dysphagia, unspecified; R47.1 Dysarthria and anarthria; G47.33 Obstructive sleep apnea (adult) (pediatric); Z82.49 Family history of ischemic heart disease and other diseases of the circulatory system; Z85.46 Personal history of malignant neoplasm of prostate; Z85.820 Personal history of malignant melanoma of skin; Z92.3 Personal history of irradiation; Z96.642 Presence of left artificial hip joint; Z79.82 Long term (current) use of aspirin
CPT/HCPCS: 0042T; 70450; 70496; 70498; 70551; 71045; 74230; 80048; 80053; 80061; 82962; 83036; 83735; 84100; 84484; 85025; 85027; 85610; 85652; 85730; 86140; 86803; 92507; 92523; 92526; 92610; 92611; 93005; 93306; 96374; 97163; 97167; 99291; J3101; Q9950; Q9967